=== PATIENT | female | born 1940 | race Two or more races ===

== ENCOUNTER 2022-10-19 14:55 | Inpatient (IN) | payer OTHER ==
[~2022-10-19] VITALS: Ht 165.1 cm; Wt 63.2 kg
[2022-10-19 15:40] LABS: HEMATOCRIT 33.6 % (31.2-41.9); MEAN CORPUSCULAR HEMOGLOBIN 26.8 uug (24.7-32.8); MEAN CORPUSCULAR VOLUME 83.5 fL (75.5-95.3); PLATELET COUNT (AUTO) 236 K/uL (179-408)
[2022-10-19 15:48] LABS: POTASSIUM 4.1 mmol/L (3.5-5.1)
--- NOTE | 2022-10-19 20:15 | NUR ---
Called [facility] to page Tristan Burns NP.
[2022-10-19] MEDS ORDERED: ONDANSETRON 4 MG/2 ML VIAL ONE (20:56)
[2022-10-19] MEDS ORDERED: HYDROMORPHONE 1 MG/1 ML DISP.SYRIN ONE (20:56)
[2022-10-19] MEDS ORDERED: ONDANSETRON 4 MG/2 ML VIAL IV ONE (21:00)
[2022-10-19] MEDS ORDERED: HYDROMORPHONE 1 MG/1 ML DISP.SYRIN IV ONE (21:00)
[2022-10-19] MEDS ORDERED: MORPHINE SULFATE 2 MG/1 ML DISP.SYRIN IV PRN (21:30)
[2022-10-19] MEDS ORDERED: ACETAMINOPHEN 325 MG TABLET PO PRN (21:30)
[2022-10-19] MEDS ORDERED: MAGNESIUM HYDROXIDE 30 ML LIQUID UDC PO PRN (21:30)
[2022-10-19] MEDS ORDERED: REMEDY ESSENTIAL ZINC PASTE 113 GM TP PRN (21:30)
[2022-10-19] MEDS ORDERED: ONDANSETRON 4 MG/2 ML VIAL IV PRN (21:30)
[2022-10-19] MEDS ORDERED: TORS20TA3 PO (21:38)
[2022-10-19] MEDS ORDERED: ASPI81TA31 PO (21:38)
[2022-10-19] MEDS ORDERED: RIVA20TA PO (21:38)
[2022-10-19] MEDS ORDERED: LISI-782 PO (21:38)
[2022-10-19] MEDS ORDERED: CHOL100045 PO (21:38)
[2022-10-19] MEDS ORDERED: CARV6.252 PO (21:38)
[2022-10-19] MEDS ORDERED: ATOR40TA PO (21:38)
[2022-10-19] MEDS ORDERED: DIGO125T5 PO (21:38)
[2022-10-19 21:41] LABS: BILIRUBIN,DIRECT 0.2 mg/dL (0.0-0.2); BILIRUBIN,TOTAL 0.7 mg/dL (0.2-1.0); TOTAL PROTEIN, SERUM 6.8 g/dL (6.4-8.2)
--- NOTE | 2022-10-19 21:45 | NUR ---
Called thrid floor to give report to EDWIGE Dagn.
--- NOTE | 2022-10-19 22:15 | NUR ---
Admitted a 82 years old female with Dx of Left Hip Fracture. Patient AAOx3. Mainly [place]ic speaking but able to speak and understand some [place] Islander. In no apparent distress. Complain of mild pain on left hip 5/10 during movement but tolerable per pt. No pain with immobility. IV site on right AC intact and patent. Routine admission care done. Plan of care initiated. Safety measure initiated and call light within reached.
[2022-10-19 22:30] VITALS: BP 146/77
[2022-10-19] MEDS: IV D5 1/2 NS 1000 ML 1,000 ML IV PRN (22:49)
--- NOTE | 2022-10-20 06:15 | NUR ---
Patient slept well after admission. No complain of pain or discomfort. NPO status. Needs assessed and attended to. Safety measure maintained and call light within reached.
[2022-10-20 07:11] LABS: HEMATOCRIT 30.5 % (31.2-41.9); MEAN CORPUSCULAR VOLUME 82.4 fL (75.5-95.3); PLATELET COUNT (AUTO) 243 K/uL (179-408)
[2022-10-20 07:37] LABS: MAGNESIUM 1.3 mg/dL (1.8-2.4); POTASSIUM 3.9 mmol/L (3.5-5.1)
--- NOTE | 2022-10-20 07:53 | NUR ---
Sleeping, appears comfortable. IVF infusing
[2022-10-20] MEDS: MAGNESIUM SULFATE/D5W 100 ML IV SCH ×4 (09:38→14:07)
[2022-10-20] MEDS: DIGOXIN 125 MCG TABLET PO SCH (09:45)
[2022-10-20] MEDS: CARVEDILOL 6.25 MG TABLET PO SCH ×2 (09:45→17:27)
--- NOTE | 2022-10-20 11:00 | NUR ---
Cardiac clearance done. Dr. Montes De Oca informed.
[2022-10-20 11:59] VITALS: BP 137/50
[2022-10-20] MEDS ORDERED: CHOLECALCIFEROL 1,000 UNIT TABLET PO SCH (12:00)
--- NOTE | 2022-10-20 12:00 | NUR ---
Surgery tomorrow. Diet resumed.
[2022-10-20] MEDS: LISINOPRIL 5 MG TABLET PO SCH (12:40)
[2022-10-20] MEDS: CHOLECALCIFEROL 1,000 UNIT TABLET PO SCH (12:40)
[2022-10-20] MEDS: IV D5 1/2 NS 1000 ML 1,000 ML IV PRN (14:11)
[2022-10-20 15:56] VITALS: BP 128/56
[2022-10-20] MEDS ORDERED: CARVEDILOL 6.25 MG TABLET PO SCH (17:00)
--- NOTE | 2022-10-20 17:00 | NUR ---
Daughter at bedside, consent signed.
--- NOTE | 2022-10-20 17:47 | NUR ---
Eating dinner, with fair appetite. SCDs on BLE.
[2022-10-20] MEDS ORDERED: ATORVASTATIN 40 MG TABLET PO SCH (18:00)
[2022-10-20] MEDS ORDERED: NEUTRA PHOS PACKET PO ONE (18:00)
[2022-10-20 20:00] VITALS: BP 144/60
[2022-10-20] MEDS: ATORVASTATIN 40 MG TABLET PO SCH (20:53)
[2022-10-21] VITALS (10 sets, daily range): BP systolic 109–157; BP diastolic 50–76
[2022-10-21] MEDS ORDERED: VANCOMYCIN 1000 MG VIAL ONE (07:02)
[2022-10-21 07:31] LABS: CREATININE 0.9 mg/dL (0.6-1.3); MAGNESIUM 1.5 mg/dL (1.8-2.4); PHOSPHOROUS 1.7 mg/dL (2.5-4.9); POTASSIUM 4.2 mmol/L (3.5-5.1)
--- NOTE | 2022-10-21 07:40 | NUR ---
PATIENT PICKED UP BY BED TO OPERATING ROOM FOR SCHEDULED HIP SURGERY ORDERED IN SATISFACTORY CONDITION.PATIENTS JEWELRY AND CELL PHONE IS AT THE NURSES STATION FOR SAFE KEEPING UNTIL SHE RETURNS
[2022-10-21] MEDS ORDERED: HYDROMORPHONE 2 MG/1 ML DISP.SYRIN ONE (07:58)
[2022-10-21] MEDS ORDERED: EPHEDRINE SULFATE 50 MG/ML AMPUL IM ONE (08:00)
[2022-10-21] MEDS ORDERED: KETOROLAC TROMETHAMINE 30 MG INJ IM ONE (08:00)
[2022-10-21] MEDS ORDERED: SEVOFLURANE 250 ML BOTTLE IH ONE (08:00)
[2022-10-21] MEDS ORDERED: LIDOCAINE-MPF 2% 5 ML VIAL IJ ONE (08:00)
[2022-10-21] MEDS ORDERED: DEXAMETHASONE SOD PHOSPHATE 4 MG INJ IV ONE (08:00)
[2022-10-21] MEDS ORDERED: GLYCOPYRROLATE 0.2 MG/ML VIAL IJ ONE (08:00)
[2022-10-21] MEDS ORDERED: PROPOFOL 200 MG/20 ML BOTTLE IV ONE (08:00)
[2022-10-21] MEDS ORDERED: CEFAZOLIN 1 G VIAL IM ONE (08:00)
[2022-10-21] MEDS ORDERED: ONDANSETRON 4 MG/2 ML VIAL IV ONE (08:00)
[2022-10-21] MEDS: CARVEDILOL 6.25 MG TABLET PO SCH ×2 (08:00→17:10)
[2022-10-21] MEDS: CHOLECALCIFEROL 1,000 UNIT TABLET PO SCH (09:00)
[2022-10-21] MEDS: DIGOXIN 125 MCG TABLET PO SCH (09:00)
[2022-10-21] MEDS ORDERED: DIGOXIN 125 MCG TABLET PO SCH (09:00)
[2022-10-21] MEDS: LISINOPRIL 5 MG TABLET PO SCH (09:00)
[2022-10-21] MEDS ORDERED: IV D5W-0.45% NS +20 KCL 1,000 ML IV PRN (09:30)
[2022-10-21] MEDS ORDERED: HYDROCODONE/APAP 5-325MG TABLET PO PRN (09:45)
--- NOTE | 2022-10-21 09:45 | NUR ---
PATIENT C/O WANTS TO MOVE HER BOWELS ASSISTED ONTO THE BEDSIDE COMMODE WILL REASSESS IF SHE MOVED HER BOWEL. Addendum: 10/21/22 at 1138 by HORACIO MARIA RN error wrong patient
[2022-10-21] MEDS ORDERED: IV D5W-0.45% NS +20 KCL 1,000 ML IV ONE (10:08)
--- NOTE | 2022-10-21 10:30 | NUR ---
PATIENT RETURNED FROM PACU BY BED AWAKE ALERT AND ORIENTED DENIES PAIN OR DISCOMFORTS AT THIS TIME ON O2 AT 2L/M BY NASAL CANULA WITH NO SHORTNESS OF BREATH AT THIS TIME IVF IN PROGRESS ORDERED WITH NO S/S OF INFILTERATION ON SITE.LEFT HIP WITH 3 AREAS WITH DRESSINGS MEPILEX AND TRANSPARENT DRESSING BUT THE SUPERIOR ONE HAS MILD BLOOD ON IT WILL OBSERVE TO ENSURE IT HAS STOPPED OR WILL REINFORCE ICE PACK TO HER LEFT HIP CIRCULATION IS ADEQUATE TO LEFT LE MADE COMFORTABLE WILL CONTINUE TO OBSERVE.
[2022-10-21] MEDS: MAGNESIUM SULFATE/D5W 100 ML IV SCH ×2 (10:58→12:13)
[2022-10-21] MEDS ORDERED: NEUTRA PHOS PACKET PO ONE (15:00)
[2022-10-21] MEDS: CEFAZOLIN 1 G in IV DEXTROSE 5% 50 ML IV SCH (16:36)
--- NOTE | 2022-10-21 18:00 | NUR ---
RESTING IN BED WITH O2 AT 2L/M BY NASAL CANULA WITH NO SOB DENIES PAIN OR DISCOMFORTS TOLERATING HER DIET ORDERED WITH NO NAUSEA OR VOMITING LEFT HIP STILL WITH MINIMUM AMOUNT OF BLOOD ON THE SUPERIOR DRESSING ICE PACK IS IN PLACE INCENTIVE SPIROMETER INSTRUCTED AND ENCOURAGED WILL CONTINUE TO OBSERVE.
[2022-10-21] MEDS: ATORVASTATIN 40 MG TABLET PO SCH (20:18)
[2022-10-22] VITALS (11 sets, daily range): BP systolic 113–131; BP diastolic 45–67
[2022-10-22] MEDS: CEFAZOLIN 1 G in IV DEXTROSE 5% 50 ML IV SCH (01:21)
[2022-10-22 07:05] LABS: CREATININE 1.2 mg/dL (0.6-1.3)
[2022-10-22 07:11] LABS: HEMATOCRIT 23.4 % (31.2-41.9); MEAN CORPUSCULAR HEMOGLOBIN 27.8 uug (24.7-32.8); MEAN CORPUSCULAR VOLUME 82.3 fL (75.5-95.3); PLATELET COUNT (AUTO) 181 K/uL (179-408)
[2022-10-22] MEDS: MORPHINE SULFATE 2 MG/1 ML DISP.SYRIN IV PRN (08:51)
[2022-10-22] MEDS: CARVEDILOL 6.25 MG TABLET PO SCH ×2 (08:51→17:23)
[2022-10-22] MEDS: CHOLECALCIFEROL 1,000 UNIT TABLET PO SCH (08:51)
--- NOTE | 2022-10-22 08:51 | NUR ---
PATIENT IS AWAKE ALERT WITH LANGUAGE ISSUES ABLE TO MAKE SIMPLE NEEDS REQUIRES MAX ASSIST FOR ALL ADL REMAIN ON ROOM AIR WITH NO S/S OF SHORTNESS OF BREATH AT THIS TIME.LEFT HIP WITH REINFORCED DRESSING HOLING UP WITH NO BLEEDING NOTED [place] TO GRAVITY DRAINAGE WITH NO HEMATURIA.MEDICATED WITH MORPHINE FOR PAIN IN ANTICIPATION FOR PHYSICAL THERAPY MADE COMFORTABLE WILL CONTINUE TO OBSERVE.
[2022-10-22] MEDS: LISINOPRIL 5 MG TABLET PO SCH (08:52)
[2022-10-22] MEDS: DIGOXIN 125 MCG TABLET PO SCH (08:52)
--- NOTE | 2022-10-22 12:45 | NUR ---
POOR VENOUS ACCESS AWARE WITH OKAY TO INSERT MIDLINE PATIENT IS ALSO GOING TO GET BLOOD TRANSFUSSION MECHANICAL RESEARCH ENGINEER NOTIFIED AND MIDLINE INSERTED TO HER RIGHT UPPER ARM AND HER IVF IS IN PROGRESS AT THIS TIME.
--- NOTE | 2022-10-22 14:00 | NUR ---
CALLED PATIENTS DAUGHTER DELGADO NA CONSCENT OBTAINED FOR BLOOD TRANSFUSION ORDERED.
--- NOTE | 2022-10-22 14:46 | NUR ---
CALLED THE BLOOD BANK RE IF HER BLOOD WAS READY SPOKE WITH SHAWNA AND SHE STATED THAT THE PERSON THAT WILL HAVE THE BLOOD READY IS NOT AVAILABLE YET WILL CALL WHEN ITS READY.
--- NOTE | 2022-10-22 16:45 | NUR ---
BLOOD TRANSFUSSION STARTED ORDERED WITH NO ADVERSE EFFECTS AT THIS TIME.
--- NOTE | 2022-10-22 18:14 | NUR ---
TRANSFUSION IN PROGRESS ORDERED WITH NO ADVERSE EFFECTS AT THIS TIME.
[2022-10-22] MEDS: ATORVASTATIN 40 MG TABLET PO SCH (20:43)
[2022-10-23] VITALS: BP 141/58
[2022-10-23 04:00] VITALS: BP 133/73
[2022-10-23 07:07] LABS: HEMATOCRIT 27.9 % (31.2-41.9); MEAN CORPUSCULAR HEMOGLOBIN 28.4 uug (24.7-32.8); MEAN CORPUSCULAR VOLUME 83.1 fL (75.5-95.3); PLATELET COUNT (AUTO) 197 K/uL (179-408)
[2022-10-23 07:42] LABS: CREATININE 0.9 mg/dL (0.6-1.3); MAGNESIUM 1.6 mg/dL (1.8-2.4); PHOSPHOROUS 2.2 mg/dL (2.5-4.9); POTASSIUM 5.5 mmol/L (3.5-5.1)
[2022-10-23] MEDS: CHOLECALCIFEROL 1,000 UNIT TABLET PO SCH (08:25)
[2022-10-23] MEDS: LISINOPRIL 5 MG TABLET PO SCH (08:26)
[2022-10-23] MEDS: DIGOXIN 125 MCG TABLET PO SCH (08:30)
[2022-10-23] MEDS: CARVEDILOL 6.25 MG TABLET PO SCH ×2 (08:30→17:03)
[2022-10-23] MEDS: MORPHINE SULFATE 2 MG/1 ML DISP.SYRIN IV PRN (09:45)
--- NOTE | 2022-10-23 09:45 | NUR ---
PRE MEDICATED WITH MORPHINE FOR PAIN IN ANTICIPATION FOR PHYSICAL THERAPY WILL CHECK EFFECTIVENESS.
[2022-10-23] MEDS: MAGNESIUM SULFATE/D5W 100 ML IV SCH ×2 (10:49→11:58)
--- NOTE | 2022-10-23 10:52 | NUR ---
MAG LEVEL IS 1.6 WITH NEW REPLACEMENT ORDERS AND NOTED
--- NOTE | 2022-10-23 10:54 | NUR ---
PER THE PHYSICAL THERAPIST PATIENT WAS ABLE TO TAKE A COUPLE OF STEPS BUT HER BLOOD PRESSURE WAS LOW AT THE TIME AND THEN NORMAL SOON GOT BACK INTO BED.WILL CONTINUE TO OBSERVE.
[2022-10-23 11:04] VITALS: BP 105/58
--- NOTE | 2022-10-23 14:08 | NUR ---
ORTHOSTATIC BLOOD PRESSURE DONE BY THE PHYSICAL THERAPY ORDERED BY KATHY B/P SUPINE IS 135/56 SIT 93/38-97/43 RELAYED TO KATHY WITH ORDERS TO GIVE HER A BOLUS AND THE PLAN IS TO DISCHARGE HER TODAY TO [facility] RECORDS ASSISTANT IS AWARE .
[2022-10-23 15:15] VITALS: BP 110/53
[2022-10-23] MEDS ORDERED: HYDR-3972 PO (16:14)
[2022-10-23] MEDS ORDERED: ATOR40TA PO (16:14)
[2022-10-23] MEDS ORDERED: SODIUM PHOSPHATE MM 15 MMOL in IV NORMAL SALINE 250 ML IV ONE (16:30)
[2022-10-23] MEDS ORDERED: NEUTRA PHOS PACKET PO ONE (17:00)
[2022-10-23] MEDS ORDERED: IV NS 1000 ML 1,000 ML IV ONE (17:00)
--- NOTE | 2022-10-23 18:00 | NUR ---
PER THE INFORMATION TECHNOLOGY DATA ANALYST [place] CHALKER PATIENT WILL BE DISCHARGED TONITE MATERIAL HANDLER IS AT 2200 AND SHE CHANGED THE PHOS REPLACEMENT TO PO INSTEAD OF IV PREVIOUSLY ORDERED.
--- NOTE | 2022-10-23 19:16 | NUR ---
PATIENTS FAMILY AT THE BEDSIDE AND AWARE THAT THE PATIENT IS BEING DISCHARGED TONITE WALLPAPER SCRAPER AT 2200
[2022-10-23 20:00] VITALS: BP 125/50
[2022-10-23] MEDS: ATORVASTATIN 40 MG TABLET PO SCH (21:43)
--- NOTE | 2022-10-23 23:24 | NUR ---
Patient pending transfer to [facility] pending hop picker at 2330.Report given to Otto
[2022-10-24] VITALS: BP 151/52
== END 2022-10-24 00:20 | DRG 481 ==
LOC: ER 14:57 → TELE3 21:58 → MEDSURG3 22:29 → TELE3 10-21 10:34
PROVIDERS: ATTEND Registered Nurse
PROC: 0QS706Z Reposition Left Upper Femur with Intramedullary Internal Fixation Device, Open Approach (ICD-10-PCS; principal; 2022-10-21)
PROC: 05H533Z Insertion of Infusion Device into Right Subclavian Vein, Percutaneous Approach (ICD-10-PCS; 2022-10-22)
PROC: B546ZZA Ultrasonography of Right Subclavian Vein, Guidance (ICD-10-PCS; 2022-10-22)
PROC: 30233N1 Transfusion of Nonautologous Red Blood Cells into Peripheral Vein, Percutaneous Approach (ICD-10-PCS; 2022-10-22)
DX: S72.142A Displaced intertrochanteric fracture of left femur, initial encounter for closed fracture (principal); D68.69 Other thrombophilia; E87.1 Hypo-osmolality and hyponatremia; I48.20 Chronic atrial fibrillation, unspecified; I50.32 Chronic diastolic (congestive) heart failure; I11.0 Hypertensive heart disease with heart failure; D64.9 Anemia, unspecified; D72.829 Elevated white blood cell count, unspecified; E78.5 Hyperlipidemia, unspecified; E83.39 Other disorders of phosphorus metabolism; E83.42 Hypomagnesemia; E83.52 Hypercalcemia; Z79.01 Long term (current) use of anticoagulants; E88.09 Other disorders of plasma-protein metabolism, not elsewhere classified; W18.30XA Fall on same level, unspecified, initial encounter; Y93.9 Activity, unspecified; Y92.009 Unspecified place in unspecified non-institutional (private) residence as the place of occurrence of the external cause; Z20.822 Contact with and (suspected) exposure to COVID-19; T50.2X5A Adverse effect of carbonic-anhydrase inhibitors, benzothiadiazides and other diuretics, initial encounter; Y92.89 Other specified places as the place of occurrence of the external cause
CPT/HCPCS: 36415; 71045; 72170; 73502; 73503; 83735; 84100; 85025; 85730; 86850; 86900; 86901; 86920; 93005; 93307; A4649; A4663; A6209; C1713; G0378; J0690; J1100; J1170; J1885; J2270; J2405; J3370; J3475; J3490; J7040; P9016